=== PATIENT | male | born 1930 | race Caucasian/White ===

== ENCOUNTER 2017-04-04 21:06 | Emergency (ER) | payer MEDICARE, OTHER ==
[2017-04-04] MEDS ORDERED: PROPARACAINE HCL 0.5% OPTH OP ONE (21:17)
[2017-04-04] MEDS ORDERED: PHARMACY KEY 1 EACH EACH MC ONE (21:18)
[2017-04-04] MEDS: PROPARACAINE HCL 0.5% OPTH OP ONE (21:40)
[2017-04-04] MEDS ORDERED: 0.9 % SODIUM CHLORIDE 500 ML IV ONE (21:50)
[2017-04-04] MEDS: SODIUM CHLORIDE IRRIG SOLUTION 1,000 ML IR ONE (22:05)
[2017-04-05 02:17] VITALS: BP 142/74
--- NOTE | 2017-05-31 23:32 | ED Physician Documentation ---
General Adult - HISTORIAN Historian: patient - HPI Stated Complaint: foreign body L eye Chief Complaint: General Adult Onset: hours Timing: still present Severity: moderate Further Comments: yes (Pt is an 87 yo male who says he got a foreign body in his L eye while mowing his lawn earlier today.) - ROS CONST: no problems EYES/ENT: other (foreign body L eye) CVS/RESP: none GI/: none MS/SKIN/LYMPH: none - PAST HX Past History: other (HTN, Thyroid d/o, arthritis, GI bleed, pvd, neuropathy, menier's) Surgeries/Procedures: other (tonsillectomy, hernia repair) Allergies/Adverse Reactions: Allergies Allergy/AdvReac Type Severity Reaction Status Date / Time clindamycin Allergy Unknown Verified 04/04/17 21:34 cephalexin [Cephalexin] AdvReac Unknown Nausea/Vomi Verified 04/04/17 21:34 ting meperidine HCl [From Demerol] AdvReac Unknown Nausea/Vomi Verified 04/04/17 21: 34 ting ofloxacin [From Floxin] AdvReac Unknown Nausea/Vomi Verified 04/04/17 21:34 ting Sulfa (Sulfonamide AdvReac Unknown Nausea/Vomi Verified 04/04/17 21:34 Antibiotics) ting Home Medications: Ambulatory Orders Medication Instructions Recorded Lisinopril 5Mg [Prinivil] 5 mg PO DAILY u2 05/18/16 Aspirin EC [Ecotrin] 81 mg PO D 04/04/17 Cholecalciferol [Vitamin D-3] 2,000 mg PO D 04/04/17 Mesalamine [Apriso] 0.375 gm PO QID 04/04/17 Multivitamin [Daily Multiple 1 tab PO D 04/04/17 Vitamin] [place]-3S/Dha/Epa/Fish Oil [Fish 1 cap PO D 04/04/17 Oil 1,200 mg Softgel] Omeprazole [Prilosec] 20 mg PO D 04/04/17 Lutein 40 mg PO DAILY av 04/08/17 Thyroid,Pork [[place] Thyroid] 60 mg PO DAILY u2 04/08/17 - SOCIAL HX Smoking History: non-smoker - FAMILY HX Family History: No - VITAL SIGNS Vital Signs: Vital Signs Temp Pulse Resp BP Pulse Ox 139/86 10/29/16 18:05 - REVIEWED ASSESSMENTS Nursing Assessment Reviewed: Yes Vitals Reviewed: Yes Progress - Progress Progress: Proparicaine 2 ggt L eye No fb seen on eyelid inversion Neg fluorescein exam Yordy lens irrigation w 500 cc NS irritation improved after Proparicaine. If sx return, f/u utilization review coordinator for slit lamp exam. General Adult Physical Exam - PHYSICAL EXAM GENERAL APPEARANCE: mild distress EENT: other (injection L eye) NECK: normal inspection, supple RESPIRATORY: no resp distress BACK: normal inspection SKIN: warm/dry, normal color EXTREMITIES: non-tender, normal range of motion, no evidence of injury NEURO: oriented X3 Discharge Clincal Impression: foreign body L eye Referrals: Boubacar Shepherd MD [Primary Care Provider] - Home Medications: Ambulatory Orders Lisinopril 5Mg [Prinivil] 5 mg PO DAILY u2 05/18/16 Aspirin EC [Ecotrin] 81 mg PO D 04/04/17 Cholecalciferol [Vitamin D-3] 2,000 mg PO D 04/04/17 Mesalamine [Apriso] 0.375 gm PO QID 04/04/17 Multivitamin [Daily Multiple Vitamin] 1 tab PO D 04/04/17 [place]-3S/Dha/Epa/Fish Oil [Fish Oil 1,200 mg Softgel] 1 cap PO D 04/04/17 Omeprazole [Prilosec] 20 mg PO D 04/04/17 Lutein 40 mg PO DAILY av 04/08/17 Thyroid,Pork [[place] Thyroid] 60 mg PO DAILY u2 04/08/17 Condition: Good Disposition: 01 HOME, SELF-CARE Decision to Admit: NO Decision Time: 22:37
== END 2017-04-04 22:40 | disposition home or self-care (01) ==
LOC: ED 21:06
DX: T15.92XA Foreign body on external eye, part unspecified, left eye, initial encounter (principal); X58.XXXA Exposure to other specified factors, initial encounter; Y93.9 Activity, unspecified; Y99.9 Unspecified external cause status
CPT/HCPCS: A9270; J7060; 65205; 99283

== ENCOUNTER 2017-05-03 11:48 | Outpatient (CLI) | payer MEDICARE, OTHER ==
[2017-04-05 02:17] VITALS: BP 142/74
[2017-05-03 12:12] LABS: BASOPHILS % 0.2 (0.0-1.5); EOSINOPHILS % 0.9 % (0.0-6.8); MEAN CORPUSCULAR VOLUME 81.2 fl (80.0-100.0); MONOCYTES % 5.2 % (0.0-11.0); NEUTROPHILS # 7.9 # k/uL (1.4-7.7)
[2017-05-03 12:33] LABS: eGFR (African) > 60; eGFR (Non-African) > 60
== END 2017-05-03 11:50 ==
LOC: LAB 11:48
PROVIDERS: ATTEND Internal Medicine Gastroenterology
DX: I10 Essential (primary) hypertension (principal); Z00.00 Encounter for general adult medical examination without abnormal findings
CPT/HCPCS: 36415; 80053; 85025; 85651; 86140

== ENCOUNTER 2017-10-11 10:05 | Outpatient (CLI) | payer MEDICARE, OTHER ==
[2017-04-05 02:17] VITALS: BP 142/74
== END 2017-10-11 10:06 ==
LOC: RAD 10:05
PROVIDERS: ATTEND Family Medicine
DX: Z13.820 Encounter for screening for osteoporosis (principal)
CPT/HCPCS: 77080

== ENCOUNTER 2017-11-09 14:39 | Outpatient (CLI) | payer MEDICARE, OTHER ==
[2017-04-05 02:17] VITALS: BP 142/74
[2017-11-09 15:14] LABS: BASOPHILS % 0.2 (0.0-1.5); EOSINOPHILS % 0.9 % (0.0-6.8); MEAN CORPUSCULAR HEMOGLOBIN 25.4 pg (28.0-34.0); MEAN CORPUSCULAR VOLUME 80.1 fl (80.0-100.0); MONOCYTES % 5.8 % (0.0-11.0); NEUTROPHILS # 8.2 # k/uL (1.4-7.7)
[2017-11-09 16:03] LABS: eGFR (African) > 60; eGFR (Non-African) > 60
== END 2017-11-09 14:40 ==
LOC: LAB 14:39
PROVIDERS: ATTEND Internal Medicine Gastroenterology
DX: K51.90 Ulcerative colitis, unspecified, without complications (principal)
CPT/HCPCS: 36415; 80053; 82306; 85025; 85651; 86140

== ENCOUNTER 2017-11-30 15:44 | Outpatient (CLI) | payer MEDICARE, OTHER ==
[2017-04-05 02:17] VITALS: BP 142/74
== END 2017-11-30 15:46 ==
LOC: LAB 15:44
PROVIDERS: ATTEND Internal Medicine Gastroenterology
DX: D64.9 Anemia, unspecified (principal); Z85.9 Personal history of malignant neoplasm, unspecified
CPT/HCPCS: 82270

== ENCOUNTER 2018-01-28 13:39 | Outpatient (CLI) | payer MEDICARE, OTHER ==
[2017-04-05 02:17] VITALS: BP 142/74
[2018-01-28 13:57] LABS: BASOPHILS % 0.1 (0.0-1.5); EOSINOPHILS % 2.9 % (0.0-6.8); MEAN CORPUSCULAR HEMOGLOBIN 28.8 pg (28.0-34.0); MEAN CORPUSCULAR VOLUME 88.8 fl (80.0-100.0); MONOCYTES % 4.4 % (0.0-11.0); NEUTROPHILS # 5.9 # k/uL (1.4-7.7)
[2018-01-28 21:01] LABS: SERUM IRON 81 ug/dL (59-158)
== END 2018-01-28 13:40 ==
LOC: LAB 13:39
PROVIDERS: ATTEND Internal Medicine Gastroenterology
DX: D64.9 Anemia, unspecified (principal)
CPT/HCPCS: 36415; 83540; 83550; 85025